=== PATIENT | female | born 1970 | race Caucasian/White ===

== ENCOUNTER 2016-11-21 13:24 | Emergency (ER) | payer OTHER ==
[~2016-11-21] VITALS: Ht 152.4 cm; Wt 55.0 kg
[2016-11-21] MEDS ORDERED: DEXAMETHASONE 10 MG/ML VIAL IM STA (17:21)
[2016-11-21] MEDS ORDERED: ACETAMINOPHEN 325MG TABLET PO ONE (17:30)
[2016-11-21] MEDS ORDERED: IBUPROFEN 800MG TABLET PO ONE (17:30)
[2016-11-21 18:07] VITALS: BP 120/79
== END 2016-11-21 18:25 | disposition home or self-care (01) ==
LOC: ER 13:24
DX: M25.562 Pain in left knee (principal); M25.561 Pain in right knee; M79.642 Pain in left hand; M79.641 Pain in right hand; M32.9 Systemic lupus erythematosus, unspecified; M19.90 Unspecified osteoarthritis, unspecified site; I10 Essential (primary) hypertension; G89.29 Other chronic pain; E11.9 Type 2 diabetes mellitus without complications; E78.00 Pure hypercholesterolemia, unspecified
CPT/HCPCS: 96372; 99283; J1100; Z7610